=== PATIENT | male | born 1970 | race Caucasian/White ===

== ENCOUNTER → 2021-07-13 | Outpatient (CLI) | payer SELFPAY ==
--- NOTE | 2021-07-13 18:01 | CT_ITS ---
STUDY: CT FACIAL BONES WITHOUT CONTRAST REASON FOR EXAM: Male, 51 years old. SINUSITIS RADIATION DOSAGE (If Supplied By Facility): CTDIvol = ( 33.06 ) mGy, DLP = ( 854.51 ) mGycm TECHNIQUE: The patient was scanned in a multi detector CT scanner. Sagittal and coronal images were reconstructed. Individualized dose optimization techniques were used for this CT. COMPARISON: None. FINDINGS: There is a coastal thickening of the right and left maxillary sinuses more prominent on the left. Normal orbital adkins and orbital contents. Normal nasal bones and anterior nasal spine. Normal facial bones. There is no demonstrated fracture. Normal visualized paranasal sinuses. CT/Sinus/Facial Bone IMPRESSION: Mucosal thickening left maxillary sinus. Electronically Signed: Srikanth Mckeon MD at 3:48 EDT ,
== END | disposition home or self-care (01) ==
PROVIDERS: Visit Provider Otolaryngology
DX: J32.9 Chronic sinusitis, unspecified (principal); J33.0 Polyp of nasal cavity
CPT/HCPCS: 70486

== ENCOUNTER → 2021-10-28 | Outpatient (CLI) | payer SELFPAY ==
--- NOTE | 2021-10-28 14:54 | EKG12_ITS ---
Test Reason : PREOP Blood Pressure : / mmHG Vent. Rate : 060 BPM Atrial Rate : 060 BPM P-R Int : 138 ms QRS Dur : 102 ms QT Int : 430 ms P-R-T Axes : 072 054 056 degrees QTc Int : 430 ms Normal sinus rhythm Normal ECG Confirmed by SONIDO ESPINOSA, HIWOT ([id number]), newspaper editor MAX GREENE ([id number]) on 10/31/2021 8:16:54 AM Referred By: Willy Dow Confirmed By:HIWOT HEAD MD
[2021-10-28 16:24] LABS: Hematocrit 43.8 % (40-54); Hemoglobin 15.3 g/dL (13.0-16.5); Mean Corp Hgb Conc 34.9 g/dL (32-36); Mean Corpuscular Hgb 30.8 pg (27.0-32.0); Mean Corpuscular Volume 88.3 fL (80-94); Mean Platelet Vol. 9.1 fl (6.2-12.0); Platelet Count 244 K/mm3 (150-450); RBC Distribution Width CV 11.2 % (11.6-14.6); RBC Distribution Width SD 35.8 fl (35.1-43.9); Red Blood Count 4.96 M/mm3 (4.6-6.2); White Blood Count 6.9 K/mm3 (4.4-11.0)
[2021-10-28 16:50] LABS: Anion Gap 4 (5-15); BUN 11 mg/dL (7-18); BUN/Creat Ratio 10.7 RATIO (10-20); Calcium,Total 8.9 mg/dL (8.5-10.1); Chloride 107 mmol/L (98-107); Creatinine, Serum 1.03 mg/dL (0.70-1.30); EST Glomerular Filtration Rate 80 mL/min (>60); Est Glom Filt Rate - Afr Amer 97 mL/min (>60); Glucose 92 mg/dL (74-106); Potassium 3.9 mmol/L (3.5-5.1); Sodium Level 139 mmol/L (136-145)
== END | disposition home or self-care (01) ==
PROVIDERS: Referring Provider Otolaryngology; Visit Provider Otolaryngology
DX: Z01.810 Encounter for preprocedural cardiovascular examination (principal)
CPT/HCPCS: 36415; 80048; 85027; 93005

== ENCOUNTER 2021-10-31 14:58 | Outpatient (CLI) | payer SELFPAY ==
--- NOTE | 2021-10-31 | ETH_PTH ---
PATIENT: TYRONE CASAS LOC: [facility] U#:[id number] AGE/SX: 51/M ROOM: RE10/31/[address]: Dr. Willy Dow MD : 1970 BED: DIS: 10/31/2021 SPEC #: [id number] RECD: 10/31/21 14:52 STATUS: HONEY REDione #: [id number] ADRIA: 10/31/21 00:[address]: Willy Dow DEPT: SURGICAL PATHOLOGY RECD BY: Antwon Barriga ENTERED: 11/01/21 10:54 SP TYPE: ETH TISS OTHR DR: No Primary Care Phys [facility] Tissues: A - Ethmoid sinus, NOS B - Ethmoid sinus, NOS Procedures: Decalcification bone/plaque Surgery Specimen Level III HEADER OPERATION: Total ethmoidectomy, bilateral maxillary antrostomy PRE-OP DIAGNOSIS: Nasal congestion, polyp of nasal cavity, chronic sinusitis TISSUE SUBMITTED: A ? Right sinus contents, B ? Left sinus contents MICROSCOPIC DIAGNOSIS A. Right sinus contents, curettings: Consistent with chronic sinusitis. Fragments of bone with no pathologic change. B. Left sinus contents, curettings: Consistent with chronic sinusitis. Fragments of bone with no pathologic change. See comment. AM:silvestre 11/04/2021 COMMENT B. Abundant eosinophils are focally present. Clinical correlation is suggested. MICROSCOPIC DESCRIPTION Slides are reviewed. GROSS DESCRIPTION A - Received in fixative is one container labeled with the patient's name and designated right sinus contents. The specimen consists of multiple irregular and gritty fragments of light gama-pink soft tissue that in aggregate measure 2.8 x 1.5 x 0.2 cm. The specimen is totally submitted in one cassette after decalcification. B - Received in fixative is one container labeled with the patient's name and designated left sinus contents. The specimen consists of multiple irregular and gritty fragments of light gama-pink soft tissue that in aggregate measure 3.2 x 2.2 x 0.2 cm. The specimen is totally submitted in one cassette after decalcification. / AM:silvestre 11/01/2021 TC:3 CPT: 53998 x2, 38531 x2
== END 2021-10-31 23:59 | disposition home or self-care (01) ==
LOC: LABSPEC 14:59
PROVIDERS: Referring Provider Otolaryngology; Visit Provider Otolaryngology
DX: J33.0 Polyp of nasal cavity (principal); J32.9 Chronic sinusitis, unspecified
CPT/HCPCS: 88304; 88305; 88311